=== PATIENT | female | born 1955 | race African-American/Black ===

== ENCOUNTER 2018-08-25 10:54 | Day surgery (SDC) | payer OTHER ==
[2018-08-23 12:59] VITALS: BMI 33.6
[~2018-08-25 10:54] MED LIST: ONDANSETRON 4 MG/2 ML VIAL IVPUSH PRN; SODIUM CHLORIDE 1,000 ML IV SCH; oxyCODONE HCL 5 MG TABLET PO PRN
[2018-08-25] MEDS ORDERED: GENTAMICIN SO4 80 MG/2 ML VIAL ONE (11:38)
[2018-08-25] MEDS ORDERED: HEPARIN NA (PORCINE) 5,000 UNITS/ML 1ML VIAL ONE (11:38)
[2018-08-25] MEDS ORDERED: BUPIVACAINE HCL/PF 0.5% (5MG/ML) 10 ML VIAL ONE (11:38)
[2018-08-25] MEDS ORDERED: LIDOCAINE HCL 1% PRESERVATIVE FREE - 30ML VIAL ONE (11:38)
[2018-08-25] MEDS ORDERED: PROPOFOL 20 ML ONE ×3 (13:07)
[2018-08-25] MEDS ORDERED: MIDAZOLAM HCL 2 MG/2 ML SINGLE DOSE VIAL ONE (13:07)
--- NOTE | 2018-08-25 13:35 | EKG ---
Test Reason : Blood Pressure : / mmHG Vent. Rate : 067 BPM Atrial Rate : 067 BPM P-R Int : 202 ms QRS Dur : 086 ms QT Int : 466 ms P-R-T Axes : 057 -15 124 degrees QTc Int : 492 ms NORMAL SINUS RHYTHM POSSIBLE LEFT ATRIAL ENLARGEMENT LEFT VENTRICULAR HYPERTROPHY T WAVE ABNORMALITY, CONSIDER LATERAL ISCHEMIA PROLONGED QT ABNORMAL ECG NO PREVIOUS ECGS AVAILABLE Confirmed by ALETA BRAGA, HARI ([id number]) on 08/25/2018 1:35:04 PM Referred By: Yumiko Mcdonnell Confirmed By:HARI RIVER MD
[2018-08-25 17:45] VITALS: TEMP 98.2
[2018-08-25 18:06] VITALS: BP 160/72; PULSE 66
--- NOTE | 2018-08-26 08:21 | OP ---
DATE OF OPERATION: 08/25/2018 PREOPERATIVE DIAGNOSIS: Renal failure. POSTOPERATIVE DIAGNOSIS: Renal failure. PROCEDURE: Creation of a left arteriovenous fistula in the left upper arm with brachial vein mobilization and basilic vein mobilization. SURGEON: Yumiko Mcdonnell MD ANESTHESIA: Local with sedation. DESCRIPTION OF PROCEDURE: Preoperative venous mapping revealed not a good sized vein in the forearm on the right side. Patient had a good vein in the forearm, but she refused to have access in the forearm, and so, the left upper arm was prepped and draped. Local with Marcaine was injected. A long incision was made from the axilla to the elbow, and brachial vein and the basilic vein were both isolated, and all the branches were tied off with 3-0 silk. Once it was taken down from the attachment at the elbow level with 2 branches, the 2 branches were then connected to form a wide opening, and then, it was brought through the subcutaneous tunnel, and the brachial artery was isolated at the right level, and to the site of the artery anastomosis was done. Flow was established. Subcutaneous tissue and skin were closed after the patient was found to have good thrill, and no complications were encountered. YUMIKO MCDONNELL M.D. [id number]
== END 2018-08-25 16:30 | disposition home or self-care (01) ==
LOC: FASU 10:54
PROVIDERS: ATTEND Surgery Vascular Surgery
PROC: 03180JV Bypass Left Brachial Artery to Superior Vena Cava with Synthetic Substitute, Open Approach (ICD-10-PCS; principal; 2018-08-25 13:23)
DX: N18.6 End stage renal disease (principal)
CPT/HCPCS: 82962; 93005; 94760; J1644